=== PATIENT | male | born 2000 | race Caucasian/White ===

== ENCOUNTER 2022-05-07 14:37 | Emergency (ER) | payer BC ==
[2022-05-07] MEDS ORDERED: KETOROLAC 30 MG/ML INJ ONE (14:54)
[2022-05-07] MEDS ORDERED: PROMETHAZINE INJ 25 MG/ML AMP ONE (14:54)
--- NOTE | 2022-05-07 15:33 | RAD REPORT ---
EXAM DESCRIPTION: CT - Stone Protocol - 05/07/2022 3:11 pm CLINICAL HISTORY: Abdominal pain. Right flank and COMPARISON: None. TECHNIQUE: Computed axial tomography of the abdomen pelvis was obtained without oral or IV contrast. Lack of IV and oral contrast limits evaluation of solid organs, appendix, bowel, and vessels. Harrlel l reformatted images were obtained and reviewed. All CT scans are performed using dose optimization technique as appropriate and may include automated exposure control or mA/KV adjustment according to patient size. FINDINGS: Mild right hydronephrosis. Renal calculus is not seen. 3 millimeter calculus distal right ureter. The liver, spleen, pancreas and adrenals appear grossly normal There is no evidence of diverticulitis. IMPRESSION: A 3 millimeter calculus distal right ureter resulting in mild right hydronephrosis
[2022-05-07 16:42] LABS: Absolute Lymphocytes (CBC) 1.1 K/uL (0.7-4.9); Hematocrit 45.7 % (39.6-49.0); Lymphocytes % 8.7 % (15.3-44.8); MCV 88.8 fL (80-100); MPV 8.4 fL (7.6-11.3); RBC Red Blood Cell Count 5.15 M/uL (4.33-5.43)
[2022-05-07 16:50] LABS: Albumin 4.5 g/dL (3.4-5.0); Bilirubin Total 0.7 mg/dL (0.2-1.0); Potassium 4.4 mmol/L (3.5-5.1); Protein, Total 8.2 g/dL (6.4-8.2)
[2022-05-07] MEDS ORDERED: NA CHLORIDE 0.9% 1,000 ML ONE (17:02)
--- NOTE | 2022-05-07 17:12 | ER ---
Nurse's Notes [facility] Name: Frank Slaughter Age: 22 yrs Sex: Male : 2000 Arrival Date: 05/07/2022 Time: 14:42 Bed 10 Private MD: Diagnosis: Hydronephrosis with renal and ureteral calculous obstruction-3mm distal right ureter Presentation: 05/07 14:46 Chief complaint: Right flank pain that radiates to groin and N/V x 1 hour. hb 14:46 Method Of Arrival: Ambulatory hb 14:46 Coronavirus screen: At this time, the client does not indicate any symptoms associated hb with coronavirus-19. Ebola Screen: No symptoms or risks identified at this time. Initial Sepsis Screen: Does the patient meet any 2 criteria? No. Patient's initial sepsis screen is negative. Does the patient have a suspected source of infection? No. Patient's initial sepsis screen is negative. Risk Assessment: Do you want to hurt yourself or someone else? Patient reports no desire to harm self or others. Onset of symptoms was May 07, 2022. 14:46 Acuity: MAX 3 hb Historical: - Allergies: 14:58 No Known Allergies; hb Vital Signs: 14:46 BP 117 / 79; Pulse 67; Resp 20; Temp 98.5; Pulse Ox 100% on R/A; Weight 77.11 kg; hb Height 5 ft. 10 in. (177.80 cm); Pain 10/10; 14:46 Body Mass Index 24.39 (77.11 kg, 177.80 cm) hb ED Course: 14:42 Patient arrived in ED. rg4 14:45 Chantel Valles FNP-C is PHCP. kb 14:45 Armando Gasca MD is Attending Physician. kb 14:49 PHCP role handed off by Chantel Valles FNP-C snw 14:49 Farzana Park FNP-C is PHCP. snw 14:58 Triage completed. hb 15:13 CT Stone Protocol In Process Unspecified. EDMS 16:03 Imelda Spivey, RN is Primary Nurse. iw 16:27 CMP Sent. mm9 16:27 CBC with Diff Sent. mm9 16:28 Inserted saline lock: 22 gauge in left antecubital area, using aseptic technique. Blood mm9 collected. Administered Medications: 14:58 Drug: Ketorolac 60 mg Route: IM; Site: right deltoid; hb 14:58 Drug: Phenergan (promethazine) 25 mg Route: IM; Site: left deltoid; hb 17:04 Drug: NS 0.9% 1000 ml Route: IV; Rate: 1 bolus; Site: left antecubital; iw 17:30 Drug: Rocephin (cefTRIAXone) 1 grams Route: IV; Rate: calculated rate; Site: left iw antecubital; 17:53 Not Given (Patient Refused): fentaNYL (PF) 25 mcg IVP once iw Outcome: 17:11 Discharge ordered by MD. reyes 17:53 Patient left the ED. iw Signatures: Dispatcher [employer] EDChantel Coombs, PETRA CORNEJO-Farzana Yu FNP-Daisy CORNEJO-Imelda Harrison RN RN iw Sharon Gimenez RN RN hb Garcia, Rubi rg4 Martinez, Maria mm9
--- NOTE | 2022-05-07 17:12 | EDPHYS ---
Physician Documentation [facility] Name: Frank Slaughter Age: 22 yrs Sex: Male : 2000 Arrival Date: 05/07/2022 Time: 14:42 Bed 10 Private MD: ED Physician Armando Gasca HPI: 05/07 14:54 This 22 yrs old Male presents to ER via Unassigned with complaints of Possible Kidney snw Stone. 14:54 The patient complains of pain in the right mid back. The pain radiates to the groin, snw right femoral area, right inguinal area and right iliac crest. Onset: The symptoms/episode began/occurred suddenly, 1 hour(s) ago, and became persistent. Associated signs and symptoms: Pertinent positives: nausea, vomiting. Severity of pain: At its worst the pain was moderate severe. The patient has experienced a previous episode. The patient has not recently seen a physician. Historical: - Allergies: 14:58 No Known Allergies; hb ROS: 14:52 Constitutional: Negative for fever, chills, and weight loss, Eyes: Negative for injury, snw pain, redness, and discharge, ENT: Negative for injury, pain, and discharge, Neck: Negative for injury, pain, and swelling, Cardiovascular: Negative for chest pain, palpitations, and edema, Respiratory: Negative for shortness of breath, cough, wheezing, and pleuritic chest pain, Abdomen/GI: Negative for abdominal pain, diarrhea, and constipation, +n/v x 2 14:52 : Negative for injury, bleeding, discharge, and swelling, MS/Extremity: Negative for injury and deformity, Skin: Negative for injury, rash, and discoloration, Neuro: Negative for headache, weakness, numbness, tingling, and seizure, Psych: Negative for depression, anxiety, suicide ideation, homicidal ideation, and hallucinations. 14:52 Back: Positive for flank pain, on the right. 14:52 : Positive for difficulty urinating, radiation from right flank to right testicles. Exam: 14:51 Head/Face: Normocephalic, atraumatic. Eyes: Pupils equal round and reactive to light, snw extra-ocular motions intact. Lids and lashes normal. Conjunctiva and sclera are non-icteric and not injected. Cornea within normal limits. Periorbital areas with no swelling, redness, or edema. ENT: Nares patent. No nasal discharge, no septal abnormalities noted. Tympanic membranes are normal and external auditory canals are clear. Oropharynx with no redness, swelling, or masses, exudates, or evidence of obstruction, uvula midline. Mucous membranes moist. Neck: Trachea midline, no thyromegaly or masses palpated, and no cervical lymphadenopathy. Supple, full range of motion without nuchal rigidity, or vertebral point tenderness. No Meningismus. Chest/axilla: Normal chest wall appearance and motion. Nontender with no deformity. No lesions are appreciated. Cardiovascular: Regular rate and rhythm with a normal S1 and S2. No gallops, murmurs, or rubs. Normal PMI, no JVD. No pulse deficits. Respiratory: Lungs have equal breath sounds bilaterally, clear to auscultation and percussion. No rales, rhonchi or wheezes noted. No increased work of breathing, no retractions or nasal flaring. 14:51 Skin: Warm, dry with normal turgor. Normal color with no rashes, no lesions, and no evidence of cellulitis. MS/ Extremity: Pulses equal, no cyanosis. Neurovascular intact. Full, normal range of motion. Neuro: Awake and alert, GCS 15, oriented to person, place, time, and situation. Cranial nerves II-XII grossly intact. Motor strength 5/5 in all extremities. Sensory grossly intact. Cerebellar exam normal. Normal gait. Psych: Awake, alert, with orientation to person, place and time. Behavior, mood, and affect are within normal limits. 14:51 Constitutional: The patient appears alert, anxious, uncomfortable. 14:51 Abdomen/GI: Palpation: mild abdominal tenderness. 14:51 Back: pain, that is moderate, of the right mid back, CVA tenderness, is noted on the right. Vital Signs: 14:46 BP 117 / 79; Pulse 67; Resp 20; Temp 98.5; Pulse Ox 100% on R/A; Weight 77.11 kg; hb Height 5 ft. 10 in. (177.80 cm); Pain 10/10; 14:46 Body Mass Index 24.39 (77.11 kg, 177.80 cm) hb MDM: 14:56 Patient medically screened. snw 17:15 Data reviewed: vital signs, nurses notes. Data interpreted: Pulse oximetry: on room air snw is 100 %. Interpretation: normal. Counseling: I had a detailed discussion with the patient and/or guardian regarding: the historical points, exam findings, and any diagnostic results supporting the discharge/admit diagnosis, lab results, radiology results, the need for outpatient follow up, for definitive care, to return to the emergency department if symptoms worsen or persist or if there are any questions or concerns that arise at home. Response to treatment: the patient's symptoms have markedly improved after treatment. Special discussion: Based on the history and exam findings, there is no indication for further emergent testing or inpatient evaluation. I discussed with the patient/guardian the need to see the primary care provider for further evaluation of the symptoms. I discussed with the patient/guardian the need to see the urologist for further evaluation of the symptoms. 05/07 14:51 Order name: CBC with Diff; Complete Time: 16:51 snw 05/07 14:51 Order name: CMP; Complete Time: 16:51 snw 05/07 14:51 Order name: CT Stone Protocol; Complete Time: 15:34 snw 05/07 14:51 Order name: Urine Microscopic Only snw 05/07 17:44 Order name: Urine Dipstick-Ancillary; Complete Time: 17:53 EDMS 05/07 14:51 Order name: Urine Dipstick-Ancillary (obtain specimen); Complete Time: 17:41 snw Administered Medications: 14:58 Drug: Ketorolac 60 mg Route: IM; Site: right deltoid; hb 14:58 Drug: Phenergan (promethazine) 25 mg Route: IM; Site: left deltoid; hb 17:04 Drug: NS 0.9% 1000 ml Route: IV; Rate: 1 bolus; Site: left antecubital; iw 17:30 Drug: Rocephin (cefTRIAXone) 1 grams Route: IV; Rate: calculated rate; Site: left iw antecubital; 17:53 Not Given (Patient Refused): fentaNYL (PF) 25 mcg IVP once iw Disposition: 18:43 Co-signature as Attending Physician, Armando Gasca MD. rn Disposition Summary: 05/07/22 17:11 Discharge Ordered Location: Home snw Condition: Stable snw Diagnosis - Hydronephrosis with renal and ureteral calculous obstruction - 3mm distal right snw ureter Followup: snw - With: Emergency Department - When: As needed - Reason: Worsening of condition Followup: snw - With: Private Physician - When: 2 - 3 days - Reason: Recheck today's complaints, Continuance of care, Re-evaluation by your physician Discharge Instructions: - Discharge Summary Sheet snw - Kidney Stones snw - Renal Colic snw - Hydronephrosis snw - Dietary Guidelines to Help Prevent Kidney Stones snw - Rehydration, Adult snw Forms: - Medication Reconciliation Form snw - Thank You Letter snw - Antibiotic Education snw - Prescription Opioid Use snw - Work release form snw Prescriptions: - Diclofenac Sodium 75 mg Oral Tablet Sustained Release - take 1 tablet by ORAL route 2 times per day; 30 tablet; Refills: 0, Product snw Selection Permitted - promethazine 25 mg Oral Tablet - take 1 tablet by ORAL route every 6 hours As needed; 20 tablet; Refills: 0, snw Product Selection Permitted Signatures: Dispatcher [employer] EDFarzana Sharif, [employer]LE SQL DEVELOPER-C [employer]LE SQL DEVELOPER-Csnw Imelda Spivey, Armando Guidry RN, MD MD rn Baxter, Heather, RN RN
[2022-05-07] MEDS ORDERED: CEFTRIAXONE 1000 MG/VIAL ONE (17:29)
[2022-05-07 17:43] LABS: Urine Blood 1+ (Negative); Urine Glucose Negative (Negative); Urine Protein 1+ (Negative); Urine pH 6.5 (5.0-7.0)
[2022-05-07] MEDS ORDERED: FENTANYL CITR 100 MCG/2 ML ONE (17:47)
[2022-05-07 18:03] LABS: Urine Bacteria None Seen /HPF (<20); Urine Mucus 1+ /HPF (None Seen)
[2022-05-07 18:42] VITALS: BP 117/79; TEMP 98.5; O2SAT 100
== END 2022-05-07 17:53 | disposition home or self-care (01) ==
LOC: ER 14:37
DX: N13.2 Hydronephrosis with renal and ureteral calculous obstruction (principal)
CPT/HCPCS: 85025; 36415; 80053; 76377; 74176; 96372; 96374; 99284; J2550; J3010; J7030; 81003; 81015